=== PATIENT | female | born 1980 | race Asian ===

== ENCOUNTER 2024-02-11 01:54 | Emergency (ER) | payer OTHER ==
[~2024-02-11] VITALS: Ht 157.5 cm; Wt 81.6 kg
[2024-02-11 02:26] VITALS: BP_SYST 242; PULSE 89; RESP 20; TEMP 98; O2SAT 98
[2024-02-11] MEDS: KETOROLAC TROMETHAMINE 60 MG/2 ML VIAL IM ONE (02:45)
[2024-02-11] MEDS: MORPHINE 4 MG INJ. 4 MG/ML VIAL IM ONE (02:59)
[2024-02-11] MEDS ORDERED: NAPR-690 PO (03:40)
[2024-02-11] MEDS ORDERED: AUG875 PO (03:40)
[2024-02-11 03:46] VITALS: BP_SYST 195; PULSE 89; RESP 20; TEMP 98; O2SAT 98
== END 2024-02-11 03:46 | disposition home or self-care (01) ==
LOC: SED 01:54
DX: H66.93 Otitis media, unspecified, bilateral (principal); I10 Essential (primary) hypertension; Z79.2 Long term (current) use of antibiotics; Z79.899 Other long term (current) drug therapy
CPT/HCPCS: 99284; 81025; 96372; J1885; J2270